=== PATIENT | female | born 1950 | race Caucasian/White ===

== ENCOUNTER 2018-08-02 07:18 | Day surgery (SDC) | payer MEDICARE, MEDICAID ==
[2018-07-24 12:59] LABS: HEMATOCRIT 36.8 % (36.0-47.0); HEMOGLOBIN 12.5 g/dL (12.0-15.5); MEAN CORPUSCULAR HEMOGLOBIN 29.9 pg (27.0-33.4); MEAN CORPUSCULAR HGB CONC 33.9 g/dL (32.0-36.0); MEAN CORPUSCULAR VOLUME 88 fl (80-97); PLATELET COUNT 188 10^3/uL (150-450); RED BLOOD COUNT 4.17 10^6/uL (3.72-5.28); RED CELL DISTRIBUTION WIDTH 15.5 % (11.5-14.0); WHITE BLOOD COUNT 3.6 10^3/uL (4.0-10.5)
[2018-07-24 13:18] LABS: AMORPHOUS SEDIMENT,URINE TRACE /HPF; APPEARANCE,URINE SLIGHTLY-CLOUDY; BILIRUBIN,URINE NEGATIVE (NEGATIVE); COLOR,URINE YELLOW; GLUCOSE, URINE NEGATIVE (NEGATIVE); KETONES,URINE NEGATIVE (NEGATIVE); LEUKOCYTE ESTERASE,URINE MODERATE (NEGATIVE); NITRITE,URINE POSITIVE (NEGATIVE); PROTEIN,URINE NEGATIVE (NEGATIVE); URINE SPECIFIC GRAVITY 1.012; UROBILINOGEN,URINE NEGATIVE mg/dL (<2.0)
[2018-07-24 13:24] LABS: INTERNATIONAL RATION (INR) 0.89; PROTHROMBIN TIME 12.5 SEC (11.4-15.4)
[2018-07-24 13:25] LABS: PARTIAL THROMBOPLASTIN TIME 28.3 SEC (23.5-35.8)
--- NOTE | 2018-07-25 00:33 | EKG REPORT ---
SEVERITY:- NORMAL ECG - SINUS RHYTHM : Confirmed by: Elvia Qiu MD 25-Jul-2018 00:32:21
[~2018-08-02 07:18] MED LIST: CEFAZOLIN 1 GM/D5W RTU 1 GM/50 ML RTUPB IV PRN; LACTATED RINGERS 1000 ML IV PRN; LIDOCAINE 0.5% INJ-PF (5 MG/ML) 50 ML SDV SUBCUT PRN
[2018-08-02] MEDS ORDERED: CEFAZOLIN 1 GM/D5W RTU 1 GM/50 ML RTUPB IV ONE (07:54)
[2018-08-02] MEDS ORDERED: SODIUM BICARBONATE 8.4% INJ 50 MEQ/50 ML DISP.SYRIN ONE (09:41)
[2018-08-02] MEDS ORDERED: PROMETHAZINE HCL INJ 25 MG/1 ML VIAL ONE (09:47)
[2018-08-02] MEDS ORDERED: ACETAMINOPHEN 1,000 MG/100 ML RTUPB IV ONE (09:47)
[2018-08-02] MEDS ORDERED: MIDAZOLAM 2 MG/2 ML INJ ONE (09:47)
[2018-08-02] MEDS ORDERED: EPHEDRINE SULFATE INJ 50 MG/1 ML AMPULE ONE (09:47)
[2018-08-02] MEDS ORDERED: FENTANYL CITRATE INJ/PF 100 MCG/2 ML AMPUL ONE (09:47)
[2018-08-02] MEDS ORDERED: DEXAMETHASONE SOD PHOSPHATE INJ 4 MG/1 ML VIAL ONE (09:47)
[2018-08-02] MEDS ORDERED: PROPOFOL INJ 200 MG/20 ML VIAL IV ONE (09:47)
[2018-08-02] MEDS ORDERED: ONDANSETRON HCL INJ/PF 4 MG/2 ML SDV ONE (09:47)
[2018-08-02] MEDS ORDERED: LIDOCAINE 1% INJ-PF (10 MG/ML) 30 ML SDV ONE (09:56)
[2018-08-02 10:02] LABS: POTASSIUM 4.2 mmol/L (3.6-5.0)
[2018-08-02] MEDS ORDERED: MEPERIDINE HCL/PF INJ 25 MG/1 ML DISP.SYRIN IV PRN (10:21)
[2018-08-02] MEDS ORDERED: PROMETHAZINE HCL INJ 25 MG/1 ML VIAL IV PRN ×2 (10:21)
[2018-08-02] MEDS ORDERED: MORPHINE SULFATE 10 MG/ML INJ IV PRN (10:21)
[2018-08-02] MEDS ORDERED: DIPHENHYDRAMINE HCL 50 MG/ML VIAL IV PRN (10:21)
[2018-08-02] MEDS ORDERED: FENTANYL CITRATE INJ/PF 100 MCG/2 ML AMPUL IV PRN ×3 (10:21)
[2018-08-02] MEDS ORDERED: CEFAZOLIN INJ 1 GM VIAL ONE (11:16)
--- NOTE | 2018-08-02 11:22 | OPERATIVE REPORT E ---
Operative Report NAME: KERLINE PURCELL : 1950 AGE: 68Y DATE OF SURGERY: 08/02/2018 ROOM: PREOPERATIVE DIAGNOSIS: L5 lumbar compression fracture with intractable pain. POSTOPERATIVE DIAGNOSIS: L5 lumbar compression fracture with intractable pain. OPERATIVE PROCEDURE: L5 balloon kyphoplasty using bilateral transpedicular approach under fluoroscopic guidance. SURGEON: LAURENCE TAPIA M.D. COMPLICATIONS: None. BLOOD LOSS: Minimal. SPECIMENS REMOVED: None. PROCEDURE NOTE: After obtaining informed consent and advising the patient of the risks and benefits, including serious neurological injury, bleeding, paralysis, infection, exacerbation of pain, failure to obtain pain relief, allergic reaction and , she was taken to the operating room and placed comfortably in the prone position. Comfort was assessed visually and verbally. MAC anesthesia was administered. She was then prepped with chlorhexidine while fluoroscopy imaging was being established for proper location. She was then draped after proper drying time. Continuing with fluoroscopy, a suitable entrance site using a left transpedicular approach was identified. The skin was anesthetized with 1% lidocaine with bicarb as were the soft tissues and the periosteal tissue above the pedicle. A small incision was then made followed by placement of the express trocar. The express trocar was passed under multiple views of fluoroscopy to enter into the pedicle and into the *------* body without transgressing into the spinal canal. The drill was then placed and removed followed by placing the balloon, which inflated easily. This procedure was then repeated on the right side. There was more difficulty on the right due to the hardness of the bone, but the procedure was completed. Bone filling then was initiated beginning on the left side. A total of 1.8 mL was injected into both sides in a sequential fashion, left followed by right. No extravasation or embolization of cement was noted. Some small concern of possible cement into the superior disk, which appeared minimal. A total of 3.6 mL of cement was instilled. The procedure was terminated. Stylette's were placed into the trocars. The cement was allowed to harden followed by removal of the trocars. The wound regions were cleansed and sterile dressings were applied. She was then taken to the PACU for further postoperative care and monitoring. DICTATING PHYSICIAN: LAURENCE TAPIA M.D. [id number] PHY#: [id number] ID: [id number] JOB#: [id number] ACCT: [id number] cc:LAURENCE TAPIA M.D. >
[2018-08-02 13:41] VITALS: BP 125/66
--- NOTE | 2018-08-02 14:52 | RADIOLOGY REPORT (SQ) ---
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 FLUOROSCOPY TIME: 3 minutes total fluoro time 49 digital C-arm images saved to PACS. TECHNIQUE: Intra-operative images acquired during surgical procedure to evaluate progress. NUMBER OF IMAGES: 49 images LIMITATIONS: None. FINDINGS: Intra procedural imaging and fluoro during kyphoplasty. Please see the operative report f or further details IMPRESSION: IMAGE(S) OBTAINED DURING PROCEDURE. COMMENT: Quality ID 145: Final reports for procedures using fluoroscopy that document radiation exp osure indices, or exposure time and number of fluorographic images (if radiation exposure indices are not available) Please consult full operative report of the attending physician for description of the procedure. TECHNICAL DOCUMENTATION: JOB ID: [id number] [employer]- All Rights Reserved Reading location - IP/workstation name: [email or web address]
--- NOTE | 2018-08-02 14:52 | RADIOLOGY REPORT (SQ) ---
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 FLUOROSCOPY TIME: 3 minutes total fluoro time 49 digital C-arm images saved to PACS. TECHNIQUE: Intra-operative images acquired during surgical procedure to evaluate progress. NUMBER OF IMAGES: 49 images LIMITATIONS: None. FINDINGS: Intra procedural imaging and fluoro during kyphoplasty. Please see the operative report f or further details IMPRESSION: IMAGE(S) OBTAINED DURING PROCEDURE. COMMENT: Quality ID 145: Final reports for procedures using fluoroscopy that document radiation exp osure indices, or exposure time and number of fluorographic images (if radiation exposure indices are not available) Please consult full operative report of the attending physician for description of the procedure. TECHNICAL DOCUMENTATION: JOB ID: [id number] [employer]- All Rights Reserved Reading location - IP/workstation name: [email or web address]
[2018-08-03] MEDS ORDERED: LIDOCAINE 0.5% INJ-PF (5 MG/ML) 50 ML SDV SUBCUT PRN (05:00)
[2018-08-03] MEDS ORDERED: LACTATED RINGERS 1000 ML IV PRN (05:00)
== END 2018-08-02 12:50 | disposition home or self-care (01) ==
LOC: OROUT 07:18
PROVIDERS: ATTEND Pain Medicine Interventional Pain Medicine
DX: S32.050A Wedge compression fracture of fifth lumbar vertebra, initial encounter for closed fracture (principal); X58.XXXA Exposure to other specified factors, initial encounter; G89.4 Chronic pain syndrome; M54.5 Low back pain; M54.16 Radiculopathy, lumbar region; M51.36 Other intervertebral disc degeneration, lumbar region; M47.816 Spondylosis without myelopathy or radiculopathy, lumbar region; Z01.812 Encounter for preprocedural laboratory examination; Z79.891 Long term (current) use of opiate analgesic; J44.9 Chronic obstructive pulmonary disease, unspecified; E78.00 Pure hypercholesterolemia, unspecified; I10 Essential (primary) hypertension; E11.9 Type 2 diabetes mellitus without complications; E66.9 Obesity, unspecified; Z68.34 Body mass index [BMI] 34.0-34.9, adult; Z79.01 Long term (current) use of anticoagulants; Z79.899 Other long term (current) drug therapy; Z79.51 Long term (current) use of inhaled steroids
CPT/HCPCS: 93005; 36415 ×2; 82947; 84132; 85027; 85610; 85730; 81001; 72100; 93010; 22514; C1713; Q9966; J2250; J0690 ×2; J3010; J3490 ×2; J2550; J2405; J2704; J0131; 1936; J1100